=== PATIENT | female | born 1970 | race Caucasian/White ===

== ENCOUNTER 2016-09-06 17:16 | Emergency (ER) | payer BC | END 2016-09-06 21:45 | disposition home or self-care (01) | LOC: ER1 17:16 | DX: S29.011A Strain of muscle and tendon of front wall of thorax, initial encounter (principal); R09.1 Pleurisy; I10 Essential (primary) hypertension; F17.200 Nicotine dependence, unspecified, uncomplicated; Z88.8 Allergy status to other drugs, medicaments and biological substances; Z79.899 Other long term (current) drug therapy; X58.XXXA Exposure to other specified factors, initial encounter | CPT/HCPCS: 71020; 93005; 99285 ==

== ENCOUNTER → 2016-09-08 | Outpatient (CLI) | payer BC | LOC: MAMO 07:48 | DX: R92.8 Other abnormal and inconclusive findings on diagnostic imaging of breast (principal) ==

== ENCOUNTER 2022-02-10 17:33 | Emergency (ER) | payer OTHER ==
[2022-02-10 19:47] LABS: HEMOGLOBIN 16.6 gm/dl (12.3-15.3); RED BLOOD COUNT 5.03 M/UL (4.00-5.10); WHITE BLOOD COUNT 16.3 K/UL (4.5-11.0)
[2022-02-10 20:17] LABS: BUN/CREATININE RATIO 23 (0-10)
[2022-02-10] MEDS ORDERED: LASIX20 MG PO (21:37)
[2022-02-10] MEDS ORDERED: LOPRESSOR 25 MG25 MG PO (21:38)
== END 2022-02-10 22:04 | disposition home or self-care (01) ==
LOC: ER1 17:33
PROVIDERS: Family Medicine
DX: J06.9 Acute upper respiratory infection, unspecified (principal); E11.9 Type 2 diabetes mellitus without complications; I50.9 Heart failure, unspecified; Z20.822 Contact with and (suspected) exposure to COVID-19
CPT/HCPCS: 0240U; 71045; 80053; 81001; 82550; 82553; 82962; 83880; 84439; 84443; 84484; 85025; 93005; 96374; 99285; J1940